=== PATIENT | female | born 1970 | race Caucasian/White ===

== ENCOUNTER 2016-09-16 06:12 | Day surgery (SDC) | payer OTHER ==
--- NOTE | ~2016-09-16 | OP ---
Record Of Operation [facility] [address] [place]. [address] NAME: VENITA MULTANI : 72 STATUS : REG [facility]#: [id number] AGE: 46 ADM/REG DATE : 09/16/16 MR#: [id number] REPORT SERV DATE: 09/16/16 DICTATED BY: JORDEN PATEL DATE: 09/16/16 REPORT STATUS : Draft TRANSCRIBED BY: MODL DATE: 09/16/16 DATE OF PROCEDURE: 09/16/2016 PREOPERATIVE DIAGNOSIS: A 10 mm left proximal ureteral calculus. POSTOPERATIVE DIAGNOSIS: A 10 mm left proximal ureteral calculus. PROCEDURES: Extracorporeal shockwave lithotripsy of left proximal ureteral calculus. SURGEON: Jorden Patel M.D. ANESTHESIA: MAC. BLOOD LOSS: Minimal. DRAINS: None. INDICATION: TECHNIQUE: The patient was identified and brought to the lithotripsy suite. She has an AICD device which has been de-programmed by the [facility]. Once adequate anesthesia had been achieved. The stone was identified with fluoroscopy, and the beam was focused on biplanar fluoroscopy. Total 3000 shocks were then administered. Starting at energy level 1.0 and advancing to energy level 7.0. Intermittent fluoroscopy was used to maintain focus on the stone. There appeared to be good fragmentation of stone. After 3000 shocks, the procedure was terminated. The patient was returned to the recovery unit in stable and satisfactory condition. PF/KOFI Jorden Patel M.D. / [id number] CC: Teddy Carpio JOHN C.
[~2016-09-16 06:12] MED LIST: COREG12; KDUR10 PO; L20 PO; PRIN10 PO; SPIRO50 PO
[2016-09-16 07:00] LABS: ASCORBIC ACID (UR NOT ORDER) NEG (NEG); BILIRUBIN, URINE NEGATIVE (NEG); KETONE, URINE NEGATIVE (NEG); LEUKOCYTE ESTERASE(NOT OR NEG (NEG); WBC (NOT ORDERED) (RFLEX) 79 (0-5)
[2016-09-16 07:17] LABS: BASOPHILS 0.3 %; BASOPHILS ABSOLUTE 0.02 10/3/uL (0.0-0.16); EOSINOPHILS 4.6 %; EOSINOPHILS ABSOLUTE 0.36 10/3/uL (0.0-0.53); HEMATOCRIT 38.5 % (36.0-48.0); IMMATURE GRANULOCYTES 0.4 %; IMMATURE GRANULOCYTES ABSOLUTE 0.03 10/3/uL (0.0-0.11); LYMPHOCYTES 33.4 %; LYMPHOCYTES ABSOLUTE 2.62 10/3/uL (0.67-4.30); MEAN CORPUS HGB CONC 33.8 g/dL (32.0-36.0); MEAN CORPUSCULAR HEMOGLOB 30.7 pg (26.0-34.0); MEAN PLATELET VOLUME 9.3 fL (9.2-13.0); MONOCYTES 5.4 %; MONOCYTES ABSOLUTE 0.42 10/3/uL (0.21-1.20); NEUTROPHILS 55.9 %; NEUTROPHILS ABSOLUTE 4.39 10/3/uL (2.02-8.40); PLATELET COUNT 288 10/3/uL (150-400); RBC DISTRIBUTION WIDTH 13.9 % (12.0-16.0); RED CELL COUNT 4.23 10/6/uL (4.0-5.6); WHITE BLOOD CELLS 7.8 10/3/uL (4.5-10.5)
[2016-09-16 07:19] LABS: MANUAL DIFF NO %
[2016-09-16 07:29] LABS: BUN (BLOOD UREA NITROGEN) 14 MG/DL (6-23); CHLORIDE, SERUM 104 MMOL/L (96-112); CO2 (CARBON DIOXIDE) 27 MMOL/L (24-34); CREATININE 0.85 MG/DL (0.55-1.02); GFR AFRICAN AMERICAN 96 ML/MIN (>=60); GFR NON AFRICAN AMERICAN 83 ML/MIN (>=60); GLUCOSE, SERUM 127 MG/DL (60-99); SODIUM, SERUM 141 MMOL/L (135-148)
== END 2016-09-16 16:36 | disposition home or self-care (01) ==
LOC: SDC 06:12
PROVIDERS: Urology
PROC: 0TF7XZZ Fragmentation in Left Ureter, External Approach (ICD-10-PCS; principal; 2016-09-16 08:00)
DX: N20.1 Calculus of ureter (principal); I50.9 Heart failure, unspecified; G43.909 Migraine, unspecified, not intractable, without status migrainosus; Z95.810 Presence of automatic (implantable) cardiac defibrillator; Z88.0 Allergy status to penicillin; Z79.899 Other long term (current) drug therapy; Z87.891 Personal history of nicotine dependence; Z98.51 Tubal ligation status; Z90.49 Acquired absence of other specified parts of digestive tract
CPT/HCPCS: 50590; 74000; 80048; 81001; 84703; 85025; 87086; 93005; J2370; J3010